=== PATIENT | male | born 1945 | race Caucasian/White ===

== ENCOUNTER → 2019-10-17 13:37 | Outpatient (CLI) | payer BC, SELFPAY ==
--- NOTE | ~2019-10-17 | US_ITS ---
EXAMINATION: US soft tissue UE LT DATE: 10/17/2019 13:55 INDICATION: Skin changes with black over the dorsum of the left hand between the second and third met acarpals post injury 2 weeks prior. TECHNIQUE: Multiple grayscale and Doppler ultrasound images of the dorsum of the left hand at the reg ion of concern were obtained. COMPARISON: None FINDINGS: No abnormal mass or fluid collections identified at the region of concern. There is normal smooth con tour to the visualized portions of the mid to distal second and third metacarpals and at the base of the second and third proximal phalanges. No joint effusions. IMPRESSION: 1. Normal study. No joint effusions, abnormal masses or fluid collections identified in the region of the distal second and third metacarpals and metacarpophalangeal joints. Reviewed, dictated and finalized at location A. IMPRESSION: 1. Normal study. No joint effusions, abnormal masses or fluid collections ident ified in the region of the distal second and third metacarpals and metacarpopha langeal joints.
== END ==
PROVIDERS: PCP Family Medicine; Visit Provider Nurse Practitioner Family
DX: R23.8 Other skin changes (principal); R22.32 Localized swelling, mass and lump, left upper limb
CPT/HCPCS: 76882

== ENCOUNTER 2021-07-22 00:43 | Day surgery (SDC) | payer BC, SELFPAY ==
[2021-07-08 15:47] VITALS: BMI 27.3
--- NOTE | 2021-07-08 15:53 | PC.NURSE ---
Report to the Outpatient Waiting Room, entrance under the green pavilion located off [facility], at time _0600 on date ___07/22/21____. OR Time: . - You and your visitor will be asked a series of questions to screen for COVID 19 for your protection. - A mask is required within the hospital. Preoperative COVID Testing Requirements: NONE No COVID Test needed if: (proof is required; if not received patient will have Rapid Test prior to entry) - Patient has received COVID Vaccine at least 14 days prior to procedure date or - Patient has positive COVID test result within last 90 days of surgery date. COVID Test needed if above criteria is not met If not COVID vaccinated a COVID test must be conducted within 72 hours of surgery and patient is asked to isolate self from time of testing until procedure. You will go to the [facility] for your COVID testing. The [facility] site is located at the corner of [address] [facility]. You will only be called if COVID results are positive and your surgeon may reschedule your elective surgery date. Patients may have clear liquids (water, carbonated beverages, clear teas, apple juice) until 3 hours prior to surgery (0430 AM) with a maximum of 20 ounces. - No food from midnight until time of surgery - Infants may have breast milk until 4 hours before surgery, infant formula 6 hours prior to surgery. - Children will be allowed to drink immediately following surgery. If applicable, please bring a bottle or sippy cup to assist with drinking. Juice, water, soda, and popsicles are readily available. For infants on formula, please bring formula the day of surgery. Pacifiers are allowed. Take the following medications with a SIP of water the morning of surgery: N/A Medications to discontinue per physician N/A Date to take last dose Please no make-up, nail kuwaiti, hairspray, perfume, deodorant, or body powder the day of surgery. No jewelry (including any body piercings) or valuables the day of surgery, leave them at home. Please take a shower or bath the night before, or the morning of, surgery with an antibacterial soap. Wear comfortable, loose fitting clothing. Children are encouraged to wear pajamas. - Jewelry must be removed prior to entering the operating room. Rings and piercings that are not removed may be cut off. - The hospital will not accept responsibility for valuables. - Please leave all valuables, including medications, at home the day of surgery. If you are going home after surgery, a licensed driver lifter of sanitation truck must drive you home. - NO public transportation without another adult. - We recommend that an adult stay with you for 24 hours following discharge. - We also recommend that you do not drive, make important decision, drink alcoholic beverages, or take any drugs that were not prescribed by your health care provider for at least 24 hours after your discharge time. For Pediatric surgeries, we recommend two adults accompany the child home (only one inside the building at this time). One visitor will be allowed to accompany the patient into the hospital. Patients visitor will be instructed to remain with patient at all times or leave the building. We will allow the visitor to come back to the postoperative area when patient is ready. Follow any additional instructions given to you from your surgeon. Telephone instructions given to ____PT and asked if any additional questions and then verbalized understanding. Patient advised to call surgeon office or pre surgery nurse liaison [phone] if any additional questions.
[2021-07-22 06:14] VITALS: BP 169/73; PULSE 68; RESP 18; TEMP 36.6; O2SAT 97
[2021-07-22] MEDS: LACTATED RINGERS 1,000 ML 30 ML IV CONT ×2 (06:25→08:03)
--- NOTE | 2021-07-22 07:10 | WPDHPUPDATE1 ---
History and Physical Update Update Date/Time: 07/22/21 07:10 History and Physical has been reviewed, including an updated exam of the patient. There are NO changes in the patient's condition. Risks, benefits, and alternatives have been discussed and questions answered. Patient agrees to proceed with procedure.
--- NOTE | 2021-07-22 07:12 | P.PNAN_ITS ---
Anes - Initial Pre Proc Eval Procedure: Operation Date: 07/22/21 07:30 Proposed Procedures p Amputation Second Digit Right Foot - Moreno Jc JR, MD Date/Time: 07/22/21 07:12 Surgeon: Moreno Jc JR, MD Pre Op Diagnosis: Dislocated 2nd Digit Rt Foot Patient Data Age: 76 Gender: M Height: 1.75 m Weight: 85.6 kg Last Vital Signs Temp 36.6 C 07/22/21 06:14 Pulse 68 07/22/21 06:14 Resp 18 07/22/21 06:14 BP 169/73 H 07/22/21 06:14 Pulse Ox 97 07/22/21 06:14 Allergies Allergy/AdvReac Type Severity Reaction Status Date / Time No Known Allergies Allergy Verified 07/22/21 06:38 Home Medications Medication Instructions Recorded Confirmed Type No Home Medications 07/08/21 07/22/21 History Patient hx anesthesia problems: none Family hx anesthesia problems: none Results Review: All pre-operative results and documents have been reviewed as part of the pre-operative evaluation. [facility] Past Medical History Medical History BMI 30.0-30.9,adult Screening for lipid disorders Screening for prostate cancer Social History Social History Smoking status: Never smoker Second hand tobacco smoke exposure: No Alcohol intake: current Drinks per week: 3 Substance use: never Substance use type: does not use Living arrangements: with family Spiritual care concerns: No Anes - Eval Final PreProcedure Day of Procedure 07/22/21 07:12 Patient weight: overweight Heart: regular rate and rhythm Lungs: clear to auscultation Airway: Mallampati scale class II Neurological: alert and oriented Last oral intake: >/= 8 hours ASA classification: II Emergent: no Anesthetic plan: proceed Anesthesia type and monitoring: general GIVS and standard monitoring Results Review: All pre-operative results and documents have been reviewed as part of the pre-operative evaluation. Informed Consent: The patient's anesthetic plan and its attendant risks and benefits were discussed with the patient/family/POA. Questions were solicited and answers provided to the satisfaction of the patient/family/POA.
[2021-07-22] MEDS: ceFAZolin 2 GM/D5W 50 ML 2 GM/50 ML BAG IVPB (07:24)
[2021-07-22] MEDS: LIDOCAINE HCL 2% PF INJ 5 ML VIAL 20 ML INFILTRATE (07:51)
--- NOTE | 2021-07-22 08:02 | W.PM.PROC2 ---
Procedure Note - Detailed Date of Procedure 07/22/21 Pre-op Diagnosis Dislocated 2nd Digit Rt Foot Post-op Diagnosis Same Procedure Performed Second digit amputation right foot Surgeon Moreno Jc JR, DPBhavin Anesthesia MAC and Local Indications Painful dislocated 2nd digit hammertoe right foot Description of Procedure Under mild sedation, the patient was brought to the operating room, placed on the operating table in the supine position. A pneumatic ankle tourniquet was placed about the patient's ankle. Following general anesthesia, I performed a proximal 2nd metatarsal De [place] Block. The foot was then scrubbed, prepped, and draped in the usual aseptic manner. An Esmarch bandage was then used to examine the patient's foot and pneumatic ankle tourniquet was then inflated. Surgery began in the following manner. Attention was directed to the dorsal aspect of the 2nd metatarsal phalangeal joint region where a racquet style incision was made about the base of the the 2nd digit. The incision was continued deep down through the subcutaneous tissues using sharp and blunt dissection. All bleeders were cauterized as necessary. A full-length periosteal incision was made overlying the 2nd metatarsal phalangeal joint, disarticulating the 2nd digit. The 2nd digit was removed from the operative site and placed on the back table and later sent for gross and histopathology. The remaining tissue was healthy and bleeding. The cartilage to the 2nd metatarsal head was normal and healthy. The wound site was then flushed with copious amounts of sterile saline.Next, the periosteum and capsular structures overlying the 2nd metatarsophalangeal joints were reapproximated with 4-0 Vicryl. Next, the skin was reapproximated and coapted utilizing 4-0 Prolene in simple interrupted suture fashion technique. Upon completion of the procedure, the incision was dressed with Steri-Strips, Adaptic, 4 x 4's, Kerlix, and Coban. The pneumatic ankle tourniquet was then deflated and a prompt hyperemic response noted to all digits of the foot. A surgical shoe was then applied. The patient did very well with the procedure and the anesthesia. The patient was transferred to the recovery room with vital signs stable and vascular status intact to all remaining toes of the affected foot. Following a period of postoperative monitoring, the patient will be discharged home on the following written and oral postoperative instructions: 1. Keep the dressing clean, dry, and intact. Use a cast protector bag with showers. 2. The patient should use a surgical shoe for ambulation postoperatively. 3. The patient should be on bedrest with bathroom privileges and elevate the affected foot when at rest. 4. The patient to contact Dr. Jc for all postop care and if any problems arise. 5. Prescriptions were written for Percocet 5/325 dispensed 40 to be taken 1 p.o. q.4 to 6 hours as needed for severe pain. Estimated Blood Loss 1 Drains No Packing No Pathology Yes Complications No immediate complications Condition Stable Disposition Same day
[2021-07-22 08:10] VITALS: BP 121/66; PULSE 53; RESP 16
[2021-07-22 08:45] VITALS: BP 148/71; PULSE 45; RESP 16
== END 2021-07-22 09:06 | disposition home or self-care (01) ==
PROVIDERS: PCP Family Medicine; Visit Provider Podiatrist Foot & Ankle Surgery
PROC: (CPT 28820; principal; 2021-07-22 07:30)
DX: M24.874 Other specific joint derangements of right foot, not elsewhere classified (principal); M20.41 Other hammer toe(s) (acquired), right foot
CPT/HCPCS: 28820; 88305; 88311; A9270; J0690; J2250; J2270; J2704; J7120